=== PATIENT | male | born 1965 | race Caucasian/White ===

== ENCOUNTER 2025-09-12 07:46 | Emergency (ER) | payer BC, SELFPAY ==
[2025-09-12 07:49] VITALS: BP 108/75
[2025-09-12 08:00] VITALS: BP 108/75
[2025-09-12 08:38] LABS: COVID-19 Antigen Negative (Negative)
--- NOTE | 2025-09-12 09:06 | ED.GENMED ---
History of Present Illness
General
Chief Complaint: Throat Problem
Time Seen by Provider: 09/12/25 08:52
History of Present Illness
History of Present Illness:
59-year-old male who presents to the emergency department for evaluation of a swollen uvula. Awoke this morning with a sensation of a foreign body in the throat before looking in the mirror and seeing the uvula. Denies other flu or cold symptoms.
No fevers or chills. No dysphagia
Review of Systems
Review of Systems
Allergies reviewed?: Yes
All Other Systems: ROS reviewed and negative except as documented in HPI and ROS
Phy Exam
Physical Exam
Physical Exam:
GEN: Well appearing, NAD, WDWN
HEENT: Oral mucosa moist, no scleral icterus, boggy and edematous lower uvula, no airway obstruction, no tonsillar hypertrophy, no cervical adenopathy
Cardiac: Regular rate
Lung: No respiratory distress, no tachypnea
MSK: No gross deformity or injuries
Skin: Good color, no pallor or jaundice, no rashes
Neuro: AO x3, moves all extremities freely
Psych: Calm, cooperative
Course
Orders/Labs/Results
Orders:
Orders
09/12/25 08:12
COVID-19 Antigen Urgent
Source: Nasal Swab
INF RAPID [Influenza A+B Rapid Molecular] Urgent
JORGE Source: Nasal Swab
Specimen Description:
Rapid Strep Group A Urgent
JORGE Source: Throat/Pharynx
Specimen Description:
Date Specimen was Collected: 09/12/25
Time Specimen was Collected: 08:05
09/12/25 09:09
Dexamethasone Pf [Decadron] 10 mg .ROUTE .STK-MED ONE
09/12/25 09:12
Dexamethasone Pf [Decadron] 10 mg PO NOW STA
Vital Signs
Initial and Last Documented VS:
Initial Vital Signs
Temp Pulse Resp BP Pulse Ox
98.6 F 80 18 108/75 100
09/12/25 07:49 09/12/25 07:49 09/12/25 07:49 09/12/25 07:49 09/12/25 07:49
Last Documented Vital Signs
Temp Pulse Resp BP Pulse Ox
98.6 F 83 18 108/75 100
09/12/25 08:00 09/12/25 08:00 09/12/25 08:00 09/12/25 08:00 09/12/25 09:08
MDM/Problems Addressed
MDM/Problems Addressed:
Likely viral etiology, thermal inhalation reported that would cause a chemical irritation to the uvula. No immediate airway obstruction. Will treat with a course of steroids
*Pulse Oximetry
SaO2: 100
Oxygen Mode of Delivery: Room air
Patient hypoxic: no
*Critical Care Note
Total Time (30-74mins, 75-104mins- exclusive of procedures): Not Applicable
ED Attending Note
-
Portions of this chart may have been created with voice recognition software.� Occasional wrong word or��sound alike� substitutions may have occurred due to the inherent limitations of voice recognition software.
Discharge Plan
Departure
Patient Disposition: Home (Routine Discharge)
Date of Disposition: 09/12/25
Time of Disposition: 09:07
Patient with high blood pressure during this ER visit?: No
Discharge Problem:
Uvulitis
Instructions: Sore throat in adults - ED (DC)
Prescriptions:
New
methylprednisolone [Medrol ([place])] 4 mg tablets,dose pack
See Rx Instructions .ROUTE .COMPLEX Qty: 21 0RF
Rx Instructions:
orally per package directions
Interventions
Interventions:
*General Assessment Last Done: 09/12/25 08:00
*Nursing Disposition Last Done: 09/12/25 09:53
ED-EENT Assessment Last Done: 09/12/25 09:20
ED- Pulmonary Assessment Last Done: 09/12/25 09:20
Discharge Date and Time
Discharge Date/Time: 09/12/25 09:30
Print Language: YI
[2025-09-12] MEDS: DECADRON 10 MG PO (09:12)
== END 2025-09-12 09:30 | disposition home or self-care (01) ==
LOC: EMR 07:46
PROVIDERS: EMERGENCY PHYSICIAN Emergency Medicine
DX: K12.2 Cellulitis and abscess of mouth (principal); Z11.52 Encounter for screening for COVID-19
CPT/HCPCS: 99283; 87070; 87502; 87811; 87880